=== PATIENT | male | born 1970 | race Caucasian/White ===

== ENCOUNTER 2018-11-19 17:50 | Emergency (ER) | payer OTHER, SELFPAY ==
[2018-11-19 17:58] VITALS: BP 150/76; PULSE 86; RESP 18; TEMP 37; O2SAT 95
--- NOTE | 2018-11-19 18:33 | W.ED.GENAD ---
Discharge Plan Disposition Patient Disposition: HOME Condition: Stable Discharge Details Chief Complaint: Orthopedic Clinical Impression: Carpal tunnel syndrome on left, Cubital tunnel syndrome on left, Neurapraxia of left upper extremity Primary Care Provider: Alicia Stanley ED Provider: Marilyn Harrison Home Meds and New Rx's Prescriptions: New naproxen 250 mg tablet 250 mg PO BID PRN (Reason: pain) Qty: 20 RF: 0 Discharge Instructions Instructions: Carpal Tunnel Syndrome (GEN), Cubital Tunnel Syndrome (ED) Additional Instructions: Rest, ice, elevate left upper extremity is much as possible. Wear the wrist splint for comfort and to help with compression of your extremity. Call orthopedics tomorrow morning to schedule a follow-up appointment for reevaluation. Return immediately to the emergency department with any worsening or new concerning symptoms. Discharge Data Discharge Physician: Marilyn Harrison Medical Decision Making 48-year-old male who presents with difficulty with extension/abduction of fingers as well as increased pain with flexion, and tingling of first through fourth fingers. He has had chronic tingling in his first through third fingers for the past 8 months. He is right-handed. He states he uses his left hand to drive and thinks this is the contributing factor. Denies any new injury. 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 Patient has notable weakness with extension and abduction of 2nd, 3rd, and 4th fingers. He has diminished sensation along 1st-4th fingers. Normal wrist extension and flexion. Cap refill less than 2 seconds. Left radial and ulnar pulses intact. Skin color and temperature within normal limits. Positive Phalen's and Tinel's sign on left. Reproduction of tingling along forearm to palpation of ulnar nerve in cubital tunnel. Discussed with patient that his symptoms appear consistent with a form of neurapraxia. He may have a component of Cubital Tunnel and Carpal Tunnel syndrome. His symptoms appear peripheral and no other central signs or symptoms. Will place patient in left wrist splint. He declined ibuprofen here. He is instructed to rest, ice, alternate Tylenol and Motrin. Patient instructed to call orthopedics to schedule a follow-up appointment for reevaluation. He is instructed return here immediately with any worsening or new concerning symptoms. HPI General Mode of arrival: ambulatory. Date/Time Provider Initiated Documentation: 11/19/18 18:14. Limitations to Documentation: no limitations. Information obtained by: patient. HPI Narrative: Patient is a 48-year-old male who presents with difficulty with extending his left third and fourth fingers for the past few days. He also admits to pain with flexion of his fingers. He states he had a similar presentation 2 weeks ago but this resolved and then returned. He states he works in [employer] using his hands but denies any known injury. He states he is right-handed. He states he has had ongoing tingling and numbness in his left first through third fingers over the past 8 months and thinks he might have carpal tunnel syndrome. He also admits to tingling now in his L fourth finger since this started a few days ago. He denies headache, other unilateral numbness or weakness, chest pain, shortness of breath. He has taken ibuprofen for pain. Related Data Home Medications Medication Instructions Recorded Confirmed naproxen 250 mg PO BID PRN #20 tab 11/19/18 Previous Rx's Medication Instructions Recorded naproxen 250 mg PO BID PRN #20 tab 11/19/18 Allergies Allergy/AdvReac Type Severity Reaction Status Date / Time No Known Allergies Allergy Unverified 11/19/18 18:00 General Stated Complaint: Orthopedic BERE: 4 Review of Systems Review of Systems All systems reviewed & are unremarkable except as noted in HPI and below Constitutional Reports as per HPI, Denies chills, Denies fever(s) and Denies headache(s) Eyes Denies blurry vision ENT Denies dizziness, Denies headache(s), Denies sore throat and Denies throat swelling Cardiovascular Denies chest pain and Denies dyspnea Respiratory Denies cough and Denies dyspnea Gastrointestinal Denies abdominal pain, Denies diarrhea and Denies vomiting Genitourinary Denies hematuria and Denies dysuria Musculoskeletal Denies abnormal gait, Denies back pain and Reports numbness Integumentary/Breasts Denies lesions and Denies rash Neurologic Denies abnormal gait, Denies dizziness, Denies headache(s), Reports focal weakness and Reports numbness Allergic/Immunologic Denies throat swelling [facility] Medical History Asthma (Chronic) Surgical History Femur fracture (Acute) Social History Smoking/Tobacco Use Status: Never Alcohol Intake: current Alcohol Intake frequency: a few times a month Alcohol type: beer Drug use: Never Do you feel safe at home: Yes Do you feel safe in your relationship?: Yes Exam Const General: cooperative, healthy appearing and no acute distress HENMT Head: normal to inspection Mouth: oral mucosae normal Eyes General: appearance normal, both eyes and all related structures Neck Neck: normal visual inspection Resp Effort & Inspection: normal respiratory effort and able to speak in complete sentences Cardio Rate: regular rate Skin General skin exam: no rashes or lesions noted Neuro General: alert, awake and oriented x3 Other: Right Hand: motor sensory grossly intact. Muscle strength 5/5 right hand. Motor and sensory radial/median/ulnar nerve intact right hand Left hand: difficulty with fingers testing lumbrical muscles and median and ulnar nerve, worse between third and fourth fingers. Limited extension of 2nd, 3rd, and 4th fingers at MCP joint of left hand. Normal okay sign strength with left hand. Normal extension of wrist left hand. Diminished sensation along median and ulnar nerve distribution of hand. Cap refill less than 2 seconds left hand. Left radial and ulnar pulses intact. Positive phalen's and tinel's test L hand. Extrem General: normal to inspection and full ROM Psych Appearance: grossly normal Affect: normal affect Course Vital Signs Temperature 98.6 F 11/19/18 17:58 Pulse 86 11/19/18 17:58 Respiratory Rate 18 11/19/18 17:58 Blood Pressure 150/76 H 11/19/18 17:58 Pulse Oximetry 95 11/19/18 17:58 Temperature 98.6 F 11/19/18 17:58 Temperature Source Skin 11/19/18 17:58 Pulse 86 11/19/18 17:58 Respiratory Rate 18 11/19/18 17:58 Blood Pressure 150/76 H 11/19/18 17:58 Pulse Oximetry 95 11/19/18 17:58 Oxygen Delivery Method Room Air 11/19/18 17:58 Oxygen Flow Rate 0 11/19/18 17:58 Pain Level 5 11/19/18 17:58
--- NOTE | 2018-11-19 18:37 | ED.GENADUL_ITS ---
Discharge Plan Disposition Patient Disposition: HOME Condition: Stable Discharge Details Chief Complaint: Orthopedic Clinical Impression: Carpal tunnel syndrome on left, Cubital tunnel syndrome on left, Neurapraxia of left upper extremity Primary Care Provider: Alicia Stanley ED Provider: Marilyn Harrison Home Meds and New Rx's Prescriptions: New naproxen 250 mg tablet 250 mg PO BID PRN (Reason: pain) Qty: 20 RF: 0 Discharge Instructions Instructions: Carpal Tunnel Syndrome (GEN), Cubital Tunnel Syndrome (ED) Additional Instructions: Rest, ice, elevate left upper extremity is much as possible. Wear the wrist splint for comfort and to help with compression of your extremity. Call orthopedics tomorrow morning to schedule a follow-up appointment for reevaluation. Return immediately to the emergency department with any worsening or new concerning symptoms. Discharge Data Discharge Physician: Marilyn Harrison Medical Decision Making 48-year-old male who presents with difficulty with extension/abduction of fingers as well as increased pain with flexion, and tingling of first through fourth fingers. He has had chronic tingling in his first through third fingers for the past 8 months. He is right-handed. He states he uses his left hand to drive and thinks this is the contributing factor. Denies any new injury. 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 Patient has notable weakness with extension and abduction of 2nd, 3rd, and 4th fingers. He has diminished sensation along 1st-4th fingers. Normal wrist extension and flexion. Cap refill less than 2 seconds. Left radial and ulnar pulses intact. Skin color and temperature within normal limits. Positive Phalen's and Tinel's sign on left. Reproduction of tingling along forearm to palpation of ulnar nerve in cubital tunnel. Discussed with patient that his symptoms appear consistent with a form of neurapraxia. He may have a component of Cubital Tunnel and Carpal Tunnel syndrome. His symptoms appear peripheral and no other central signs or symptoms. Will place patient in left wrist splint. He declined ibuprofen here. He is instructed to rest, ice, alternate Tylenol and Motrin. Patient instructed to call orthopedics to schedule a follow-up appointment for reevaluation. He is instructed return here immediately with any worsening or new concerning symptoms. HPI General Mode of arrival: ambulatory . Date/Time Provider Initiated Documentation: 11/19/18 18:14 . Limitations to Documentation: no limitations . Information obtained by: patient . HPI Narrative: Patient is a 48-year-old male who presents with difficulty with extending his left third and fourth fingers for the past few days. He also admits to pain with flexion of his fingers. He states he had a similar presentation 2 weeks ago but this resolved and then returned. He states he works in [employer] using his hands but denies any known injury. He states he is right-handed. He states he has had ongoing tingling and numbness in his left first through third fingers over the past 8 months and thinks he might have carpal tunnel syndrome. He also admits to tingling now in his L fourth finger since this started a few days ago. He denies headache, other unilateral numbness or weakness, chest pain, shortness of breath. He has taken ibuprofen for pain. Related Data Home Medications Medication Instructions Recorded Confirmed naproxen 250 mg PO BID PRN #20 tab 11/19/18 Previous Rx's Medication Instructions Recorded naproxen 250 mg PO BID PRN #20 tab 11/19/18 Allergies Allergy/AdvReac Type Severity Reaction Status Date / Time No Known Allergies Allergy Unverified 11/19/18 18:00 General Stated Complaint: Orthopedic BERE: 4 Review of Systems Review of Systems All systems reviewed & are unremarkable except as noted in HPI and below Constitutional Reports as per HPI, Denies chills, Denies fever(s) and Denies headache(s) Eyes Denies blurry vision ENT Denies dizziness, Denies headache(s), Denies sore throat and Denies throat swelling Cardiovascular Denies chest pain and Denies dyspnea Respiratory Denies cough and Denies dyspnea Gastrointestinal Denies abdominal pain, Denies diarrhea and Denies vomiting Genitourinary Denies hematuria and Denies dysuria Musculoskeletal Denies abnormal gait, Denies back pain and Reports numbness Integumentary/Breasts Denies lesions and Denies rash Neurologic Denies abnormal gait, Denies dizziness, Denies headache(s), Reports focal weakness and Reports numbness Allergic/Immunologic Denies throat swelling [facility] Medical History Asthma (Chronic) Surgical History Femur fracture (Acute) Social History Smoking/Tobacco Use Status: Never Alcohol Intake: current Alcohol Intake frequency: a few times a month Alcohol type: beer Drug use: Never Do you feel safe at home: Yes Do you feel safe in your relationship?: Yes Exam Const General: cooperative, healthy appearing and no acute distress HENMT Head: normal to inspection Mouth: oral mucosae normal Eyes General: appearance normal, both eyes and all related structures Neck Neck: normal visual inspection Resp Effort & Inspection: normal respiratory effort and able to speak in complete sentences Cardio Rate: regular rate Skin General skin exam: no rashes or lesions noted Neuro General: alert, awake and oriented x3 Other: Right Hand: motor sensory grossly intact. Muscle strength 5/5 right hand. Motor and sensory radial/median/ulnar nerve intact right hand Left hand: difficulty with fingers testing lumbrical muscles and median and ulnar nerve, worse between third and fourth fingers. Limited extension of 2nd, 3rd, and 4th fingers at MCP joint of left hand. Normal okay sign strength with left hand. Normal extension of wrist left hand. Diminished sensation along median and ulnar nerve distribution of hand. Cap refill less than 2 seconds left hand. Left radial and ulnar pulses intact. Positive phalen's and tinel's test L hand. Extrem General: normal to inspection and full ROM Psych Appearance: grossly normal Affect: normal affect Course Vital Signs Temperature 98.6 F 11/19/18 17:58 Pulse 86 11/19/18 17:58 Respiratory Rate 18 11/19/18 17:58 Blood Pressure 150/76 H 11/19/18 17:58 Pulse Oximetry 95 11/19/18 17:58 Temperature 98.6 F 11/19/18 17:58 Temperature Source Skin 11/19/18 17:58 Pulse 86 11/19/18 17:58 Respiratory Rate 18 11/19/18 17:58 Blood Pressure 150/76 H 11/19/18 17:58 Pulse Oximetry 95 11/19/18 17:58 Oxygen Delivery Method Room Air 11/19/18 17:58 Oxygen Flow Rate 0 11/19/18 17:58 Pain Level 5 11/19/18 17:58
[2018-11-19 18:41] VITALS: BP 150/76; PULSE 86; RESP 18; TEMP 37; O2SAT 95
== END 2018-11-19 19:00 | disposition home or self-care (01) ==
PROVIDERS: Emergency Provider Physician Assistant; PCP Nurse Practitioner Family
DX: G56.02 Carpal tunnel syndrome, left upper limb (principal); G56.22 Lesion of ulnar nerve, left upper limb; S54.91XA Injury of unspecified nerve at forearm level, right arm, initial encounter; X50.3XXA Overexertion from repetitive movements, initial encounter
CPT/HCPCS: 99283; L3908

== ENCOUNTER 2020-04-24 16:17 | Outpatient (REF) | payer OTHER, SELFPAY ==
[2020-04-24 19:10] LABS: Abs Immature Grans 0.03 10^3/uL (0.0-0.06); Absolute Basophil Count 0.04 10^3/uL (0.0-0.2); Absolute Lymphocyte Count 1.84 10^3/uL (1.2-3.4); Absolute Monocyte Count 0.47 10^3/uL (0.1-0.8); Absolute Neutrophil Count 3.31 10^3/uL (1.2-6.7); Basophils % 0.7; HCT 44.6 % (40.0-50.0); HGB 14.7 g/dL (13.5-17.5); Immature Grans % 0.5; Lymphocytes % 30.7; MCH 29.3 pg (27.0-33.0); MPV 11.5 fL (8.0-11.0); Monocytes % 7.8; Neutrophils % 55.3; Nucleated RBC 0 %; Platelet Count 200 10^3/uL (130-400); RBC 5.01 10^6/uL (4.36-5.78); RDW 12.8 % (11.8-14.1); RDW-SD 41.9 fL; WBC 5.99 10^3/uL (4.4-10.8)
[2020-04-24 20:11] LABS: ALT 29 U/L (16-63); AST 13 U/L (15-37); Albumin 4.4 g/dL (3.4-5.0); Alkaline Phosphatase 68 U/L (46-116); Anion Gap 7.7 mmol/L (3-11); BUN 20 mg/dL (7-18); Bilirubin, Total 0.6 mg/dL (0.2-1.0); CO2 27.3 mmol/L (21.0-32.0); CREATININE 1.02 mg/dL (0.70-1.30); Calculated LDL 123 mg/dL (<100); Chloride 107 mmol/L (98-107); Cholesterol 194 mg/dL (<200); Ferritin 306 ng/mL (26-388); Glucose 81 mg/dL (74-106); HDL Cholesterol 49 mg/dL (40-60); Magnesium 2.1 mg/dL (1.8-2.4); Potassium 4.4 mmol/L (3.5-5.1); Sodium 142 mmol/L (136-145); TSH (W/Ref FT4) 1.39 uIU/mL (0.36-3.74); Total Protein 7.4 g/dL (6.4-8.2); Triglyceride 113 mg/dL (<150)
== END 2020-04-24 16:37 ==
LOC: NCHCN 16:17
PROVIDERS: PCP Nurse Practitioner Family; Visit Provider Physician Assistant Medical
DX: Z00.00 Encounter for general adult medical examination without abnormal findings (principal); G56.01 Carpal tunnel syndrome, right upper limb; G25.81 Restless legs syndrome
CPT/HCPCS: 80053; 80061; 82728; 83735; 84443; 85025

== ENCOUNTER 2022-09-30 13:18 | Outpatient (REF) | payer OTHER, SELFPAY ==
[2022-09-30 15:31] LABS: Abs Immature Grans 0.02 10^3/uL (0.0-0.06); Absolute Basophil Count 0.05 10^3/uL (0.0-0.2); Absolute Eosinophil Count 0.35 10^3/uL (0.0-0.7); Absolute Lymphocyte Count 1.42 10^3/uL (1.2-3.4); Absolute Monocyte Count 0.35 10^3/uL (0.1-0.8); Absolute Neutrophil Count 3.45 10^3/uL (1.2-6.7); Basophils % 0.9; Eosinophils % 6.2; HCT 45.9 % (40.0-50.0); HGB 15.4 g/dL (13.5-17.5); Immature Grans % 0.4; Lymphocytes % 25.2; MCH 29.2 pg (27.0-33.0); MCHC 33.6 % (32.0-36.0); MCV 87 fL (80-95); Monocytes % 6.2; Neutrophils % 61.1; Platelet Count 212 10^3/uL (130-400); RBC 5.27 10^6/uL (4.36-5.78); RDW 12.1 % (11.8-14.1); WBC 5.64 10^3/uL (4.4-10.8)
[2022-09-30 15:45] LABS: ALT 24 U/L (16-63); AST 19 U/L (15-37); Albumin 4.3 g/dL (3.4-5.0); Alkaline Phosphatase 68 U/L (46-116); Anion Gap 9.4 mmol/L (3-11); BUN 21 mg/dL (7-18); Bilirubin, Total 0.9 mg/dL (0.2-1.0); CO2 26.6 mmol/L (21.0-32.0); CREATININE 1.1 mg/dL (0.70-1.30); Calcium 9.3 mg/dL (8.5-10.1); Calculated LDL 135 mg/dL (<100); Chloride 104 mmol/L (98-107); Cholesterol 211 mg/dL (<200); Estimated GFR 81.28 (mL/min/1.73m2); Glucose 107 mg/dL (74-106); HDL Cholesterol 58 mg/dL (40-60); Potassium 4.3 mmol/L (3.5-5.1); Sodium 140 mmol/L (136-145); Total Protein 7.8 g/dL (6.4-8.2); Triglyceride 93 mg/dL (<150)
[2022-10-03 11:19] LABS: HIV-1/2 Ag & Ab Screen Negative (Negative)
[2022-10-04 14:40] LABS: Hepatitis C Ab w Rflx HCV PCR Negative (Negative)
== END 2022-09-30 13:19 | disposition home or self-care (01) ==
LOC: NCHCN 13:18
PROVIDERS: PCP Nurse Practitioner Family; Visit Provider Nurse Practitioner Family
DX: K59.00 Constipation, unspecified (principal); R10.9 Unspecified abdominal pain; R10.33 Periumbilical pain; R68.89 Other general symptoms and signs; Z00.00 Encounter for general adult medical examination without abnormal findings; Z11.59 Encounter for screening for other viral diseases; Z11.4 Encounter for screening for human immunodeficiency virus [HIV]
CPT/HCPCS: 80053; 80061; 86803; 87389; 84443; 85025

== ENCOUNTER 2022-11-24 10:27 | Outpatient (REF) | payer OTHER, SELFPAY ==
[2022-11-24 15:28] LABS: Bilirubin Negative (Negative); Blood Negative (Negative); Clarity Clear (Clear); Glucose Negative (Negative); Ketones Negative (Negative); Leukocyte Esterase Negative (Negative); Nitrite Negative (Negative); Specific Gravity >= 1.030 (1.005-1.025); Urobilinogen 0.2 mg/dL (Up to 0.2); pH 5.5 (5-8)
[2022-11-24 15:43] LABS: Bacteria Negative HPF (Negative); C & S Indicated? No; Casts Negative LPF (Negative); Crystals Negative HPF (Negative); Epithelial Cells Rare HPF (Negative); Mucus Negative (Negative); RBC Negative HPF (0-2); WBC Negative HPF (0-5)
[2022-11-24 16:07] LABS: COMMENT (LAB VIEW ONLY) 161.79 mg/dL; PROTEIN 15.3 mg/dL; Prot/Crea Ur Ratio 0.09
== END 2022-11-24 10:28 | disposition home or self-care (01) ==
LOC: NCHCN 10:27
PROVIDERS: PCP Nurse Practitioner Family; Visit Provider Nurse Practitioner Family
DX: R31.9 Hematuria, unspecified (principal); R80.9 Proteinuria, unspecified
CPT/HCPCS: 81003; 81015; 82565; 84156

== ENCOUNTER 2023-10-10 10:15 | Outpatient (REF) | payer OTHER, SELFPAY ==
[2023-10-10 15:50] LABS: Abs Immature Grans 0.01 10^3/uL (0.0-0.06); Absolute Basophil Count 0.07 10^3/uL (0.0-0.2); Absolute Eosinophil Count 0.36 10^3/uL (0.0-0.7); Absolute Lymphocyte Count 1.64 10^3/uL (1.2-3.4); Absolute Monocyte Count 0.39 10^3/uL (0.1-0.8); Absolute Neutrophil Count 3.78 10^3/uL (1.2-6.7); Basophils % 1.1; Eosinophils % 5.8; HCT 43.6 % (40.0-50.0); HGB 14.8 g/dL (13.5-17.5); Immature Grans % 0.2; Lymphocytes % 26.2; MCH 29.6 pg (27.0-33.0); MCHC 33.9 % (32.0-36.0); MCV 87 fL (80-95); MPV 11.5 fL (8.0-11.0); Monocytes % 6.2; Neutrophils % 60.5; Platelet Count 209 10^3/uL (130-400); RDW 12.4 % (11.8-14.1); RDW-SD 39.8 fL; WBC 6.25 10^3/uL (4.4-10.8)
[2023-10-10 16:05] LABS: ALT 25 U/L (16-63); AST 15 U/L (15-37); Albumin 4.2 g/dL (3.4-5.0); Alkaline Phosphatase 76 U/L (46-116); BUN 30 mg/dL (7-18); Bilirubin, Total 0.7 mg/dL (0.2-1.0); CREATININE 1.1 mg/dL (0.70-1.30); Calcium 9.4 mg/dL (8.5-10.1); Calculated LDL 129 mg/dL (<100); Chloride 107 mmol/L (98-107); Cholesterol 201 mg/dL (<200); Estimated GFR 80.77 (mL/min/1.73m2); Glucose 101 mg/dL (74-106); HDL Cholesterol 52 mg/dL (40-60); Potassium 4.4 mmol/L (3.5-5.1); Sodium 142 mmol/L (136-145); Triglyceride 101 mg/dL (<150)
[2023-10-11 12:29] LABS: Lyme Ab w Rflx to Lyme Confirm Equivocal (Negative)
[2023-10-11 14:18] LABS: Hemoglobin A1C 5.4 % (<5.7)
[2023-10-11 14:22] LABS: Lyme IgG Ab Negative (Negative); Lyme IgM Ab Negative (Negative)
[2023-10-13 00:13] LABS: Anaplasma phagocytophilum Negative (Negative); B. miyamotoi PCR Negative (Negative); Babesia divergens/MO-1 Negative (Negative); Babesia duncani Negative (Negative); Babesia microti Negative (Negative); Ehrlichia chaffeensis Negative (Negative); Ehrlichia ewingii/canis Negative (Negative); Ehrlichia muris eauclairensis Negative (Negative)
== END 2023-10-10 10:16 | disposition home or self-care (01) ==
LOC: NCHCN 10:15
PROVIDERS: PCP Nurse Practitioner Family; Referring Provider Physician Assistant Medical; Visit Provider Physician Assistant Medical
DX: Z00.00 Encounter for general adult medical examination without abnormal findings (principal); M25.59 Pain in other specified joint; Z13.6 Encounter for screening for cardiovascular disorders; Z11.8 Encounter for screening for other infectious and parasitic diseases
CPT/HCPCS: 80053; 80061; 86617; 87798; 83036; 85025; 86618

== ENCOUNTER 2024-10-15 09:52 | Outpatient (REF) | payer OTHER, SELFPAY ==
[2024-10-15 15:38] LABS: Abs Immature Grans 0.02 10^3/uL (0.0-0.06); Absolute Basophil Count 0.06 10^3/uL (0.0-0.2); Absolute Eosinophil Count 0.33 10^3/uL (0.0-0.7); Absolute Lymphocyte Count 1.62 10^3/uL (1.2-3.4); Absolute Monocyte Count 0.38 10^3/uL (0.1-0.8); Absolute Neutrophil Count 3.49 10^3/uL (1.2-6.7); Eosinophils % 5.6 %; HCT 46.6 % (40.0-50.0); HGB 15.8 g/dL (13.5-17.5); Immature Grans % 0.3 %; Lymphocytes % 27.5 %; MCH 30.1 pg (27.0-33.0); MCHC 33.9 % (32.0-36.0); MCV 89 fL (80-95); MPV 10.8 fL (8.0-11.0); Monocytes % 6.4 %; Neutrophils % 59.2 %; Platelet Count 224 10^3/uL (130-400); RBC 5.25 10^6/uL (4.36-5.78); RDW 12.3 % (11.8-14.1); RDW-SD 40.1 fL
[2024-10-15 17:05] LABS: ALT 58 U/L (16-63); AST 25 U/L (15-37); Albumin 4.3 g/dL (3.4-5.0); Alkaline Phosphatase 75 U/L (46-116); BUN 17 mg/dL (7-18); Bilirubin, Total 0.46 mg/dL (0.2-1.0); CREATININE 1.2 mg/dL (0.70-1.30); Calcium 9.4 mg/dL (8.5-10.1); Chloride 108 mmol/L (98-107); Estimated GFR 72.31 (mL/min/1.73m2); Glucose 96 mg/dL (74-106); Potassium 4.6 mmol/L (3.5-5.1); Sodium 143 mmol/L (136-145); Total Protein 7.7 g/dL (6.4-8.2)
[2024-10-16 11:12] LABS: Lyme Ab w Rflx to Lyme Confirm Negative (Negative)
== END 2024-10-15 09:53 | disposition home or self-care (01) ==
LOC: NCHCN 09:52
PROVIDERS: PCP Nurse Practitioner Family; Visit Provider Physician Assistant Medical
DX: M25.59 Pain in other specified joint (principal); R10.9 Unspecified abdominal pain; R31.29 Other microscopic hematuria
CPT/HCPCS: 80053; 85025; 86618